=== PATIENT | female | born 1965 | race African-American/Black ===

== ENCOUNTER 2018-04-06 04:45 | Emergency (ER) | payer MEDICAID, OTHER ==
[~2018-04-06] VITALS: Ht 165.1 cm; Wt 52.6 kg
[2018-04-06] MEDS ORDERED: TETANUS, DIPHTHERIA, PERTUSSIS VAC/PF 0.5ML (>7YR OLD) IM ONE (07:15)
[2018-04-06] MEDS ORDERED: METOCLOPRAMIDE HCL 10MG TABLET PO ONE (07:15)
[2018-04-06 09:13] VITALS: BP 116/78
== END 2018-04-06 09:15 | disposition home or self-care (01) ==
LOC: ER 04:45
DX: S61.032A Puncture wound without foreign body of left thumb without damage to nail, initial encounter (principal); X58.XXXA Exposure to other specified factors, initial encounter; Y93.89 Activity, other specified; Y92.89 Other specified places as the place of occurrence of the external cause; Z23 Encounter for immunization; Z88.5 Allergy status to narcotic agent; Z88.6 Allergy status to analgesic agent; Z88.0 Allergy status to penicillin; Z88.2 Allergy status to sulfonamides; Z88.1 Allergy status to other antibiotic agents; Z85.118 Personal history of other malignant neoplasm of bronchus and lung
CPT/HCPCS: 73140; 90471; 90715; 99284; J8597

== ENCOUNTER 2018-11-16 10:48 | Emergency (ER) | payer MEDICAID ==
[~2018-11-16] VITALS: Ht 167.6 cm; Wt 56.0 kg
[2018-11-16] MEDS ORDERED: MORPHINE SULFATE 4 MG/ML CPJ (NOT FOR IM USE) IV STA (12:20)
[2018-11-16] MEDS ORDERED: ONDANSETRON HCL 4MG/2ML INJ IV STA (12:20)
[2018-11-16] MEDS ORDERED: SODIUM CHLORIDE 0.9% 1,000 ML IV ONE ×2 (12:20→22:00)
[2018-11-16] MEDS ORDERED: ASPIRIN 81MG TABLET PO ONE (12:30)
[2018-11-16 13:16] LABS: BASOPHILS % 0.3 % (0.0-2.0); EOSINOPHILS % 0.7 % (0.0-5.0); HEMATOCRIT. 39.1 % (36.0-48.0); HEMOGLOBIN. 13.2 g/dL (12.0-16.0); MEAN CORPUSCULAR HEMOGLOBIN 30.5 pg (28.0-32.0); MEAN CORPUSCULAR VOLUME 90.4 fL (81.0-99.0); MEAN PLATELET VOLUME 8.8 fl (7.4-10.4); MONOCYTES % 6.3 % (2.0-8.0); NEUTROPHILS % 67.7 % (40.0-76.0); PLATELET 236 x1000/uL (130-400); RED BLOOD CELL COUNT 4.32 mill/uL (4.2-5.4); RED CELL DISTRIBUTION WIDTH 14.1 % (11.6-14.6)
[2018-11-16 13:18] LABS: CHLORIDE 104 mEq/L (98-107)
[2018-11-16] MEDS ORDERED: ACETAMINOPHEN 325MG TABLET PO ONE (13:30)
[2018-11-16 14:58] LABS: CLARITY URINE CLEAR (CLEAR); COLOR URINE YELLOW (YELLOW); KETONES URINE 1+ (NEGATIVE); LEUKOCYTE ESTERASE URINE NEGATIVE (NEGATIVE); NITRITE URINE NEGATIVE (NEGATIVE); OCCULT BLOOD URINE NEGATIVE (NEGATIVE); PROTEIN URINE NEGATIVE (NEGATIVE); SPECIFIC GRAVITY URINE 1.007 (1.005-1.030); UROBILINOGEN URINE 0.2 E.U./dL (0.2-1.0)
[2018-11-16] MEDS ORDERED: IOHEXOL-300 100 ML BOTTLE ONE (16:13)
[2018-11-16] MEDS ORDERED: MORPHINE SULFATE 4 MG/ML CPJ (NOT FOR IM USE) IV ONE (17:00)
[2018-11-16] MEDS ORDERED: METOCLOPRAMIDE HCL 10MG/2ML VIAL IV ONE (17:00)
[2018-11-16] MEDS ORDERED: DEXAMETHASONE 10 MG/ML VIAL IV ONE (17:15)
[2018-11-16] MEDS ORDERED: LEVETIRACETAM 500MG PREMIX 100 ML IV ONE (18:00)
[2018-11-17] MEDS ORDERED: ACETAMINOPHEN 325MG TABLET PO ONE (08:15)
[2018-11-17] MEDS ORDERED: METHYLPREDNISOLONE SOD SUCC 125 MG/2 ML VIAL IV ONE (14:00)
[2018-11-17] MEDS ORDERED: LEVETIRACETAM 500MG PREMIX 100 ML IV ONE (18:45)
[2018-11-17] MEDS ORDERED: DEXAMETHASONE 10 MG/ML VIAL IV SCH (18:45)
[2018-11-17] MEDS ORDERED: METHYLPREDNISOLONE SOD SUCC 125 MG/2 ML VIAL ONE (18:47)
[2018-11-17 19:39] VITALS: BP 106/59
[2018-11-18] MEDS ORDERED: DEXAMETHASONE 10 MG/ML VIAL IV SCH (20:00)
== END 2018-11-17 21:32 | disposition short-term general hospital (02) ==
LOC: ER 10:48 → CANBEDREQ 11-17 05:20 → ER 11-17 21:32
DX: R07.89 Other chest pain (principal); R51 Headache; R10.9 Unspecified abdominal pain; R11.2 Nausea with vomiting, unspecified; Z85.118 Personal history of other malignant neoplasm of bronchus and lung; Z87.891 Personal history of nicotine dependence; Z88.0 Allergy status to penicillin; Z88.2 Allergy status to sulfonamides; Z88.1 Allergy status to other antibiotic agents; Z88.8 Allergy status to other drugs, medicaments and biological substances
CPT/HCPCS: 36415; 70470; 71045; 71260; 74177; 80053; 81003; 83880; 84484; 85025; 93005; 96361; 96365; 96366; 96375; 96376; 99291; J1100; J1953; J2270; J2405; J2765; J2930; J7030; Q9967; Z7610; 99284